=== PATIENT | female | born 1995 | race Caucasian/White ===

== ENCOUNTER 2023-12-22 17:48 | Emergency (ER) | payer SELFPAY ==
[~2023-12-22] VITALS: Ht 162.6 cm; Wt 92.7 kg
[2023-12-22] MEDS ORDERED: LEVOTHYROXINE75 MCG PO (18:06)
[2023-12-22 18:07] VITALS: BP 113/83
== END 2023-12-22 19:50 | disposition home or self-care (01) ==
LOC: ED 17:48
DX: T65.891A Toxic effect of other specified substances, accidental (unintentional), initial encounter (principal); T26.91XA Corrosion of right eye and adnexa, part unspecified, initial encounter; Y92.59 Other trade areas as the place of occurrence of the external cause; Y99.0 Civilian activity done for income or pay